=== PATIENT | male | born 1975 | race Caucasian/White ===

== ENCOUNTER 2018-09-04 14:38 | Inpatient (IN) | payer MEDICAID ==
[~2018-09-04 14:38] MED LIST: DESFLURANE 15 MIN; GLYCOPYRROLATE 0.4 MG INJ; LIDOCAINE 2% (SDV) 5 ML INJ; NEOSTIGMINE 10 MG INJ; PROPOFOL 200 MG INJ
[2018-09-04 16:48] LABS: ADD MAN DIFF? NO
[2018-09-04] MEDS: ONDANSETRON 4 MG INJ IV (17:03)
[2018-09-04] MEDS: SOD CHLORIDE 0.9% 1,000 ML IV (17:03)
[2018-09-04] MEDS: morphine 2 MG INJ IV ×2 (17:04→21:57)
[2018-09-04 17:11] LABS: WHITE BLOOD COUNT 8.1 10^3/ul (4.8-10.8)
[2018-09-04 17:11] LABS: BASOPHILS % 0.2 % (0.0-2.0); EOSINOPHILS % 0.1 % (0.0-7.0); HEMATOCRIT 47.6 % (42.0-52.0); HEMOGLOBIN 15.1 g/dl (14.0-18.0); LYMPHOCYTES # 0.7 10^3/ul (0.8-2.9); LYMPHOCYTES % 8.5 % (15.0-51.0); MEAN CORPUSCULAR HGB CONC 31.7 g/dl (32.0-37.0); MEAN CORPUSCULAR VOLUME 78.8 fl (82.0-101.0); MEAN PLATELET VOLUME 9.5 fl (7.4-10.4); MONOCYTE # 0.3 10^3/ul (0.3-0.9); MONOCYTES % 4.2 % (0.0-11.0); NEUTROPHILS % 86.8 % (39.0-77.0); PLATELET COUNT 204 10^3/UL (140-415); RED BLOOD COUNT 6.04 10^6/ul (4.70-6.10)
[2018-09-04 17:12] LABS: ALANINE AMINOTRANSFERASE 24 IU/L (13-69); ALBUMIN 4.9 g/dl (3.3-4.9); ALBUMIN/GLOBULIN RATIO 1.32; ALKALINE PHOSPHATASE 115 IU/L (42-121); ANION GAP 10 (5-13); ASPARTATE AMINO TRANSFERASE 31 IU/L (15-46); BILIRUBIN,INDIRECT 0.7 mg/dl (0-1.1); BILIRUBIN,TOTAL 0.7 mg/dl (0.2-1.3); BLOOD UREA NITROGEN 12 mg/dl (7-20); CALCIUM 9.8 mg/dl (8.4-10.2); CARBON DIOXIDE 29 mmol/L (21-31); CHLORIDE 103 mmol/L (97-110); CREATININE 0.72 mg/dl (0.61-1.24); Estimated GFR > 60 mL/min (>60); GLUCOSE 98 mg/dl (70-220); LIPASE 31 U/L (23-300); SODIUM 142 mmol/L (135-144); TOTAL PROTEIN 8.6 g/dl (6.1-8.1)
[2018-09-04 17:23] LABS: ADD UMIC YES; UR ASCORBIC ACID NEGATIVE (NEGATIVE); UR BACTERIA FEW /HPF (NONE SEEN); UR BILIRUBIN (Dip) NEGATIVE (NEGATIVE); UR BLOOD (Dip) NEGATIVE (NEGATIVE); UR CLARITY CLEAR (CLEAR); UR COLOR YELLOW (YELLOW); UR GLUCOSE (Dip) NEGATIVE (NEGATIVE); UR KETONES (Dip) 1+ mg/dL (NEGATIVE); UR LEUKOCYTE ESTERASE (Dip) NEGATIVE Leu/ul (NEGATIVE); UR MUCUS MANY /HPF (NONE SEEN); UR NITRITE (Dip) NEGATIVE (NEGATIVE); UR RBC 0 /HPF (0-5); UR SPECIFIC GRAVITY (Dip) 1.026 (1.003-1.030); UR TOTAL PROTEIN (Dip) 1+ mg/dl (NEGATIVE); UR UROBILINOGEN (Dip) 1+ mg/dL (NEGATIVE); UR WBC 4 /HPF (0-5)
[2018-09-04] MEDS: PIPER-TAZO 3.375 GM IV (PMX) 100 ML IVPB (18:37)
[2018-09-04] MEDS ORDERED: DOCUSATE SODIUM 100 MG CAP PO ×2 (19:00)
[2018-09-04] MEDS ORDERED: ACETAMINOPHEN 325 MG TAB PO ×2 (19:00)
[2018-09-04] MEDS ORDERED: HYDROCODONE/APAP (5/325) TAB PO ×2 (19:00)
[2018-09-04] MEDS ORDERED: ONDANSETRON 4 MG INJ IV ×2 (19:00)
[2018-09-04] MEDS ORDERED: NITROGLYCERIN (SL) 0.4 MG TAB SL ×2 (19:00)
[2018-09-04] MEDS ORDERED: ALBUTEROL/IPRATROPIUM (NEB) 3 ML AMP HHN ×2 (19:00)
[2018-09-04] MEDS ORDERED: NACL 0.9% 3 ML SYG IV ×2 (19:00)
[2018-09-04] MEDS ORDERED: LORAZEPAM 2 MG INJ IV ×2 (19:00)
[2018-09-04] MEDS ORDERED: morphine 2 MG INJ IV (19:00)
[2018-09-04] MEDS ORDERED: MAGNESIUM HYDROXIDE 30ML CUP PO ×2 (19:00)
[2018-09-04] MEDS: D5W-0.45 NACL + KCL 20 MEQ 1,000 ML IV (19:16)
[2018-09-04 19:52] LABS: INR 1.02; PROTIME 13.5 Sec (11.9-14.9); PT RATIO 1.1
[2018-09-04 19:53] LABS: PARTIAL THROMBOPLASTIN TIME 26.9 Sec (23.0-35.0)
[2018-09-04 20:07] LABS: FREE T4 (FREE THYROXINE) 0.93 ng/dl (0.64-1.79)
[2018-09-04] MEDS: HEPARIN 5,000 UNIT/1 ML VIAL SC (21:56)
[2018-09-04] MEDS: BUPIVACAINE 0.5%/EPI (SDV) 30 ML INJ (22:43)
[2018-09-04] MEDS ORDERED: ROCURONIUM 50 MG INJ (23:22)
[2018-09-04] MEDS ORDERED: ONDANSETRON 4 MG INJ (23:23)
[2018-09-04] MEDS ORDERED: DEXAMETHASONE 4 MG/ML 5 ML INJ (23:23)
[2018-09-05] MEDS ORDERED: NEOSTIGMINE 10 MG INJ (00:13)
[2018-09-05] MEDS ORDERED: GLYCOPYRROLATE 0.4 MG INJ (00:13)
[2018-09-05] MEDS ORDERED: METOCLOPRAMIDE 10 MG INJ IV (00:30)
[2018-09-05] MEDS ORDERED: EPHEDrine SULFATE 50 MG/5 ML SYG IV (00:30)
[2018-09-05] MEDS ORDERED: hydrALAzine 20 MG INJ IV (00:30)
[2018-09-05] MEDS ORDERED: ALBUTEROL 0.083% (NEB) 2.5 MG/3 ML AMP HHN (00:30)
[2018-09-05] MEDS ORDERED: HYDROmorphONE 1 MG/5 ML IV SYRINGE IV ×3 (00:30)
[2018-09-05] MEDS ORDERED: LABETALOL HCL 20MG INJ IV (00:30)
[2018-09-05] MEDS ORDERED: KETOROLAC 30 MG INJ IV (00:30)
[2018-09-05] MEDS ORDERED: FENTAnyl 50 MCG/ML VIAL IV ×3 (00:30)
[2018-09-05] MEDS ORDERED: MEPERIDINE 25 MG INJ IV (00:30)
[2018-09-05] MEDS ORDERED: MIDAZOLAM 1 MG/ML 2 ML INJ IV (00:30)
[2018-09-05] MEDS ORDERED: DIPHENHYDRAMINE 50 MG INJ IV (00:30)
[2018-09-05] MEDS ORDERED: ACETAMINOPHEN 325 MG TAB PO (01:00)
[2018-09-05] MEDS ORDERED: IBUPROFEN 600 MG TAB PO (01:00)
[2018-09-05] MEDS ORDERED: HYDROCODONE/APAP (5/325) TAB PO (01:00)
[2018-09-05] MEDS ORDERED: HYDROmorphONE 0.5 MG/0.5 ML SYG IV (01:00)
[2018-09-05] MEDS ORDERED: ONDANSETRON 4 MG INJ IV (01:00)
[2018-09-05] MEDS: ONDANSETRON 4 MG INJ IV (01:01)
[2018-09-05] MEDS: D5W-0.45 NACL + KCL 20 MEQ 1,000 ML IV ×3 (01:24→20:37)
[2018-09-05 05:22] LABS: HEMATOCRIT 39.6 % (42.0-52.0); HEMOGLOBIN 12.9 g/dl (14.0-18.0); MEAN CORPUSCULAR HEMOGLOBIN 25.5 pg (29.0-33.0); MEAN CORPUSCULAR HGB CONC 32.6 g/dl (32.0-37.0); MEAN CORPUSCULAR VOLUME 78.3 fl (82.0-101.0); PLATELET COUNT 177 10^3/UL (140-415); POSITIVE DIFF @See below; RED BLOOD COUNT 5.06 10^6/ul (4.70-6.10); RED CELL DISTRIBUTION WIDTH 14.5 % (11.5-14.5)
[2018-09-05 05:22] LABS: WHITE BLOOD COUNT 13.5 10^3/ul (4.8-10.8)
[2018-09-05 05:31] LABS: HEMOGLOBIN A1C 5.2 % (0-5.9)
[2018-09-05] MEDS: PIPER-TAZO 3.375 GM IV (PMX) 100 ML IVPB ×4 (05:32→23:11)
[2018-09-05 05:41] LABS: ANION GAP 4 (5-13); BLOOD UREA NITROGEN 11 mg/dl (7-20); CALCIUM 8.6 mg/dl (8.4-10.2); CARBON DIOXIDE 28 mmol/L (21-31); CHLORIDE 106 mmol/L (97-110); CREATININE 0.78 mg/dl (0.61-1.24); Estimated GFR > 60 mL/min (>60); GLUCOSE 167 mg/dl (70-220); POTASSIUM 4.2 mmol/L (3.5-5.1); SODIUM 138 mmol/L (135-144)
[2018-09-05 05:49] LABS: ADD MAN DIFF? YES
[2018-09-05 05:51] LABS: CHOLESTEROL 151 mg/dl (100-200)
[2018-09-05 05:51] LABS: CHOL/HDL RATIO 2.7 RATIO; HDL CHOLESTEROL 54 mg/dl (27-67); LDL CHOLESTEROL,CALCULATED 87 mg/dl; TRIGLYCERIDES 49 mg/dl (0-149)
[2018-09-05 06:14] LABS: THYROID STIMULATING HORMONE 0.257 MIU/L (0.465-4.680)
[2018-09-05] MEDS: HEPARIN 5,000 UNIT/1 ML VIAL SC ×2 (08:56→20:39)
[2018-09-06 05:19] LABS: ADD MAN DIFF? NO
[2018-09-06] MEDS: PIPER-TAZO 3.375 GM IV (PMX) 100 ML IVPB ×2 (05:22→12:47)
[2018-09-06 05:28] LABS: WHITE BLOOD COUNT 11.1 10^3/ul (4.8-10.8)
[2018-09-06 05:28] LABS: BASOPHILS % 0.2 % (0.0-2.0); EOSINOPHILS % 0.3 % (0.0-7.0); HEMATOCRIT 35.8 % (42.0-52.0); HEMOGLOBIN 11.6 g/dl (14.0-18.0); LYMPHOCYTES # 1.6 10^3/ul (0.8-2.9); LYMPHOCYTES % 14.4 % (15.0-51.0); MEAN CORPUSCULAR HEMOGLOBIN 25.6 pg (29.0-33.0); MEAN CORPUSCULAR HGB CONC 32.4 g/dl (32.0-37.0); MEAN PLATELET VOLUME 10.3 fl (7.4-10.4); MONOCYTE # 0.8 10^3/ul (0.3-0.9); NEUTROPHIL # 8.6 10^3/ul (1.6-7.5); NEUTROPHILS % 77.6 % (39.0-77.0); PLATELET COUNT 160 10^3/UL (140-415); RED BLOOD COUNT 4.53 10^6/ul (4.70-6.10); RED CELL DISTRIBUTION WIDTH 14.4 % (11.5-14.5)
[2018-09-06 05:40] LABS: ANION GAP 7 (5-13); BLOOD UREA NITROGEN 13 mg/dl (7-20); CALCIUM 8.8 mg/dl (8.4-10.2); CARBON DIOXIDE 26 mmol/L (21-31); CHLORIDE 108 mmol/L (97-110); CREATININE 0.87 mg/dl (0.61-1.24); Estimated GFR > 60 mL/min (>60); GLUCOSE 127 mg/dl (70-220); SODIUM 141 mmol/L (135-144)
[2018-09-06] MEDS: D5W-0.45 NACL + KCL 20 MEQ 1,000 ML IV (06:50)
[2018-09-06] MEDS: HEPARIN 5,000 UNIT/1 ML VIAL SC (09:47)
== END 2018-09-06 16:22 | disposition home or self-care (01) | DRG 340 ==
LOC: FTE 14:38 → MS1 19:30
PROC: 0DTJ4ZZ Resection of Appendix, Percutaneous Endoscopic Approach (ICD-10-PCS; principal; 2018-09-04 00:16)
DX: K35.32 Acute appendicitis with perforation, localized peritonitis, and gangrene, without abscess (principal); F17.210 Nicotine dependence, cigarettes, uncomplicated
CPT/HCPCS: 36415; 74176; 76705; 80048; 80053; 80061; 81001; 83036; 83690; 84439; 84443; 85025; 85610; 85730; 87070; 87075; 87102; 87116; 88304; 96361; 96365; 96375; 99285-25